=== PATIENT | male | born 1965 | race Caucasian/White ===

== ENCOUNTER 2020-11-16 15:31 | Emergency (ER) | payer OTHER ==
[2020-11-16] MEDS ORDERED: NAPROXEN500 MG PO (17:29)
== END 2020-11-16 18:00 | disposition home or self-care (01) ==
LOC: FER 15:31
DX: S20.211A Contusion of right front wall of thorax, initial encounter (principal); S40.021A Contusion of right upper arm, initial encounter; M25.522 Pain in left elbow; M25.521 Pain in right elbow; M79.632 Pain in left forearm; M79.631 Pain in right forearm; Z88.0 Allergy status to penicillin; Z98.890 Other specified postprocedural states; W05.1XXA Fall from non-moving nonmotorized scooter, initial encounter
CPT/HCPCS: 71101; 73090; 96372; J1100; J1885